=== PATIENT | male | born 1995 ===

== ENCOUNTER 2017-05-14 14:01 | Emergency (ER) | payer OTHER ==
[~2017-05-14] VITALS: Ht 165.1 cm; Wt 84.6 kg
[~2017-05-14 14:01] MED LIST: ACET-1311 PO; TERB250T47 PO
[2017-05-14 14:06] VITALS: Ht 165.1 cm; Wt 84.6 kg
[2017-05-14] MEDS ORDERED: MAGNESIUM SULFATE 1GM / D5W 1 GM BAG IV STA (14:14)
[2017-05-14] MEDS ORDERED: PROCHLORPERAZINE 5 MG/ML 2 ML VIAL IV STA (14:14)
[2017-05-14] MEDS ORDERED: DiphenhydrAMINE HCL 50 MG/ML VIAL IV STA (14:14)
[2017-05-14] MEDS ORDERED: KETOROLAC TROMETHAMINE 30 MG/ML VIAL IV STA (14:14)
--- NOTE | 2017-05-14 14:17 | EMERGENCY ROOM VISIT NOTE ---
History Report prepared by Evans: Arnav Rea Under the Supervision of: Dr. Vipin Pate M.D. First contact with patient: 14:09 Chief Complaint: HEADACHE Stated Complaint: HEADACHE,EYE BURNING SENSATION History of Present Illness The patient is a 21 year old male who presents to the Emergency Room with complaints of intermittent headaches for two days [employer]. He states the headache is coming and going. He notes that his eyes have been burning. He has taken an Advil that provided mild relief. He notes mild neck pain. He states the headache is tense. He denies any fevers. He denies any underlying medical problems. 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 Review of Systems See HPI for pertinent positives & negatives. A total of 10 systems reviewed and were otherwise negative. Past Medical & Surgical Medical Problems: (1) Congenital ankyloglossia Family History Cancer Diabetes mellitus Heart disease Hypertension Social History Smoking Status: Never Smoker Smokeless Tobacco Use: No Alcohol Use: none Drug Use: none Marital Status: single Housing Status: lives with family Occupation Status: student Current/Historical Medications Scheduled PRN Acetaminophen (Tylenol), 650 MG PO Q6H PRN for Pain Ibuprofen Tab (Advil), 200 MG PO UD PRN for Headache Allergies Coded Allergies: No Known Allergies (Unverified , 05/14/17) Physical Exam Vital Signs Date Time Temp Pulse Resp B/P (MAP) Pulse Ox O2 Delivery O2 Flow Rate FiO2 05/14/17 16:36 37.0 60 18 108/57 99 05/14/17 15:52 49 18 110/53 98 Room Air 05/14/17 15:12 99 Room Air 05/14/17 14:06 37.0 73 20 130/63 99 Room Air Physical Exam GENERAL: Patient is a healthy-appearing well-nourished male. No evidence of meningitis or encephalitis on exam. HEAD: Normocephalic atraumatic. EYES: Ocular movements intact pupils equal and react to light OROPHARYNX mucous membranes are moist no exudates present no erythema or edema present NECK: Supple no nuchal rigidity CHEST: Good equal expansion LUNGS: Clear and equal to auscultation CARDIAC: Normal S1 and S2 ABDOMEN: Soft nontender no guarding BACK: No CVA tenderness EXTREMITIES: No pain upon palpation normal muscle strength in all groups no clubbing cyanosis or edema NEURO: Patient is following commands and answering questions appropriately. Alert and oriented x3 Cranial Nerves 2-12 grossly intact Medical Decision & Procedures ER Provider Diagnostic Interpretation: Radiology results as stated below per my review and radiologist interpretation: HEAD WITHOUT CONTRAST (CT) CT DOSE: 537.48 mGy.cm HISTORY: Headache Pt c/o AMS TECHNIQUE: Multiaxial CT images of the head were performed without the use of intravenous contrast. A dose lowering technique was utilized adhering to the principles of ALARA. Comparison: None. Findings: The paranasal sinuses and mastoid air cells are clear. The calvarium and skull base are intact. The ventricles and sulci are within normal limits. There is no mass, hematoma, midline shift, or acute infarct. Impression: No acute intracranial abnormality. The above report was generated using voice recognition software. It may contain grammatical, syntax or spelling errors. Electronically signed by: Isauro Estrada M.D. 05/14/2017 3:15 PM Dictated Date/Time: 05/14/2017 3:14 PM Laboratory Results 05/14/17 14:35 Red Blood Count 5.44, Mean Corpuscular Volume 78.5, Mean Corpuscular Hemoglobin 27.6, Mean Corpuscular Hemoglobin Concent 35.1, Mean Platelet Volume 10.7, Neutrophils (%) (Auto) 35.7, Lymphocytes (%) (Auto) 50.6, Monocytes (%) (Auto) 9.4, Eosinophils (%) (Auto) 2.9, Basophils (%) (Auto) 1.0, Neutrophils # (Auto) 1.74, Lymphocytes # (Auto) 2.47, Monocytes # (Auto) 0.46, Eosinophils # (Auto) 0.14, Basophils # (Auto) 0.05 05/14/17 14:35 Test 05/14/17 14:35 05/14/17 15:00 White Blood Count 4.88 K/uL (4.8-10.8) Red Blood Count 5.44 M/uL (4.7-6.1) Hemoglobin 15.0 g/dL (14.0-18.0) Hematocrit 42.7 % (42-52) Mean Corpuscular Volume 78.5 fL (80-100) Mean Corpuscular Hemoglobin 27.6 pg (25-34) Mean Corpuscular Hemoglobin Concent 35.1 g/dl (32-36) Platelet Count 193 K/uL (130-400) Mean Platelet Volume 10.7 fL (7.4-10.4) Neutrophils (%) (Auto) 35.7 % Lymphocytes (%) (Auto) 50.6 % Monocytes (%) (Auto) 9.4 % Eosinophils (%) (Auto) 2.9 % Basophils (%) (Auto) 1.0 % Neutrophils # (Auto) 1.74 K/uL (1.4-6.5) Lymphocytes # (Auto) 2.47 K/uL (1.2-3.4) Monocytes # (Auto) 0.46 K/uL (0.11-0.59) Eosinophils # (Auto) 0.14 K/uL (0-0.5) Basophils # (Auto) 0.05 K/uL (0-0.2) RDW Standard Deviation 35.6 fL (36.4-46.3) RDW Coefficient of Variation 12.6 % (11.5-14.5) Immature Granulocyte % (Auto) 0.4 % Immature Granulocyte # (Auto) 0.02 K/uL (0.00-0.02) Neutrophils % (Manual) 29.2 % Lymphocytes % (Manual) 35.4 % Variant Lymphocytes % (manual) 22.1 % Monocytes % (Manual) 12.4 % Eosinophils % (Manual) 0.9 % Neutrophils # (Manual) 1.42 K/uL (1.4-6.5) Total Absolute Neutrophils 1.42 K/uL (1.4-6.5) Lymphocytes # (Manual) 1.73 K/uL (1.2-3.4) Absolute Variant Lymphocytes 1.08 K/uL Total Absolute Lymphocytes 2.81 K/uL (1.2-3.4) Monocytes # (Manual) 0.61 K/uL (0.11-0.59) Eosinophils # (Manual) 0.04 K/uL (0-0.5) Microcytosis PRESENT Anion Gap 4.0 mmol/L (3-11) Est Creatinine Clear Calc Drug Dose 122.6 ml/min Estimated GFR () 130.6 Estimated GFR (Non- 112.7 BUN/Creatinine Ratio 19.1 (10-20) Calcium Level 8.6 mg/dl (8.5-10.1) Total Bilirubin 1.2 mg/dl (0.2-1) Direct Bilirubin 0.3 mg/dl (0-0.2) Aspartate Amino Transf (AST/SGOT) 19 U/L (15-37) Alanine Aminotransferase (ALT/SGPT) 43 U/L (12-78) Alkaline Phosphatase 70 U/L (45-117) Total Protein 7.4 gm/dl (6.4-8.2) Albumin 4.1 gm/dl (3.4-5.0) Monoscreen NEG (NEG) Influenza Type A Antigen Neg for Influ A (NEG) Influenza Type B Antigen Neg for Influ B (NEG) Labs reviewed by ED physician. Medications Administered Medications (Trade) Dose Ordered Sig/Christopher Route Start Time Stop Time Status Last Admin Dose Admin Ketorolac Tromethamine (Toradol Inj) 30 mg NOW STAT IV 05/14/17 14:14 05/14/17 14:16 DC 05/14/17 15:11 30 MG Prochlorperazine Edisylate (Compazine Inj) 10 mg NOW STAT IV 05/14/17 14:14 05/14/17 14:16 DC 05/14/17 14:14 10 MG Diphenhydramine HCl (Benadryl Inj) 50 mg NOW STAT IV 05/14/17 14:14 05/14/17 14:16 DC 05/14/17 14:14 50 MG Magnesium Sulfate (Magnesium Sulfate) 1 gm NOW STAT IV 05/14/17 14:14 05/14/17 14:17 DC 05/14/17 14:14 1 GM Dexamethasone Sodium Phosphate (Decadron Inj) 10 mg NOW IV 05/14/17 16:00 05/14/17 17:11 DC 05/14/17 16:11 10 MG ED Course 1410: Past medical records reviewed. The patient was evaluated in room B2. A complete history and physical examination was performed. 1414: Ordered Magnesium Sulfate 1 gm IV, Benadryl 50 mg IV, Compazine 10 mg IV, and Toradol 30 mg IV 1518: I reassessed the patient at this time. He is feeling better and resting comfortably. I discussed the results and treatment plan with the patient. I answered all pertaining questions that he had. He expressed understanding and verbalized agreement. The patient will be discharged home. Medical Decision Prior records/ancillary studies reviewed. Triage Nursing notes reviewed. The patient's history was concerning for headache. Differential diagnosis: Etiologies such as migraine headache, meningitis, sinusitis, CO exposure, ICH, SAH, infection, tumor, headache, sinus thrombosis, arterial dissection, as well as others were entertained. This is a 21-year-old male who presents emergency department complaining of headache. The patient has no evidence of meningitis encephalitis on examination. He does not have an elevation in his white blood count and is afebrile here therefore my suspicion of meningitis is exceedingly low. CT the head does not show any acute abnormalities. An IV was established, the patient given Toradol, Compazine, Benadryl. Repeat examination revealed improvement patient's symptoms. She feels patient as well as to be discharged home. Patient was in agreement with the treatment plan. Medication Reconcilliation Current Medication List: was personally reviewed by me Blood Pressure Screening Patient's blood pressure: Elevated blood pressure Blood pressure disposition: Referred to PCP Impression Primary Impression: Headache Scribe Attestation The scribe's documentation has been prepared under my direction and personally reviewed by me in its entirety. I confirm that the note above accurately reflects all work, treatment, procedures, and medical decision making performed by me. Departure Information Dispostion Home / Self-Care Referrals No Doctor, Assigned (PCP) Forms HOME CARE DOCUMENTATION FORM, IMPORTANT VISIT INFORMATION, School Instructions, Work Instructions Patient Instructions ED Headache Migraine, My [facility] Additional Instructions Return if you develop fevers, severe headache and neck pain You have been examined and treated today on an emergency basis only. This is not a substitute for, or an effort to provide, complete comprehensive medical care. It is impossible to recognize and treat all injuries or illnesses in a single emergency department visit. It is therefore important that you follow up closely with your PCP. Call as soon as possible for an appointment. Thank you for your time and consideration. I look forward to speaking with you again soon. Please don't hesitate to call us if you have any questions. Problem Qualifiers Primary Impression: Headache Headache type: unspecified Headache chronicity pattern: unspecified pattern Intractability: not intractable Qualified Codes: R51 - Headache
[2017-05-14] MEDS ORDERED: IBUP-103 PO (14:39)
[2017-05-14 14:49] LABS: HEMATOCRIT 42.7 % (42-52); MEAN CELL VOLUME 78.5 fL (80-100); MEAN CORPUSCULAR HEMOGLOBIN 27.6 pg (25-34); MEAN CORPUSCULAR HGB CONC 35.1 g/dl (32-36); MEAN PLATELET VOLUME 10.7 fL (7.4-10.4); PLATELET COUNT 193 K/uL (130-400); RED CELL DISTRIBUTION WIDTH CV 12.6 % (11.5-14.5); RED CELL DISTRIBUTION WIDTH SD 35.6 fL (36.4-46.3); WHITE BLOOD COUNT 4.88 K/uL (4.8-10.8)
[2017-05-14 15:12] VITALS: O2SAT 99
[2017-05-14 15:14] LABS: ALBUMIN 4.1 gm/dl (3.4-5.0); CALCIUM 8.6 mg/dl (8.5-10.1); CREATININE 0.97 mg/dl (0.60-1.40); POTASSIUM 3.7 mmol/L (3.5-5.1); TOTAL PROTEIN 7.4 gm/dl (6.4-8.2)
--- NOTE | 2017-05-14 15:16 | DIAGNOSTIC IMAGING REPORT ---
HEAD WITHOUT CONTRAST (CT) CT DOSE: 537.48 mGy.cm HISTORY: Headache Pt c/o AMS TECHNIQUE: Multiaxial CT images of the head were performed without the use of intravenous contrast. A dose lowering technique was utilized adhering to the principles of ALARA. Comparison: None. Findings: The paranasal sinuses and mastoid air cells are clear. The calvarium and skull base are intact. The ventricles and sulci are within normal limits. There is no mass, hematoma, midline shift, or acute infarct. Impression: No acute intracranial abnormality. The above report was generated using voice recognition software. It may contain grammatical, syntax or spelling errors. Electronically signed by: Isauro Estrada M.D. 05/14/2017 3:15 PM Dictated Date/Time: 05/14/2017 3:14 PM
[2017-05-14] MEDS ORDERED: DEXAMETHASONE INJ 10 MG in SYRINGE 0 ML IV STA (15:19)
[2017-05-14 15:24] LABS: BASO ABS # 0.05 K/uL (0-0.2); EOS % 2.9 %; EOS ABS # 0.14 K/uL (0-0.5); IG# 0.02 K/uL (0.00-0.02); LYMPH % 50.6 %; LYMPH ABS # 2.47 K/uL (1.2-3.4); MONO % 9.4 %; MONO ABS # 0.46 K/uL (0.11-0.59); NEUT % 35.7 %; NEUT ABS # 1.74 K/uL (1.4-6.5)
[2017-05-14] MEDS ORDERED: DEXAMETHASONE SOD INJ 10 MG/ML VIAL IV SCH (16:00)
[2017-05-14 16:08] LABS: INFLUENZA B ANTIGEN Neg for Influ B (NEG)
[2017-05-14] MEDS ORDERED: DEXAMETHASONE **PF** INJ 10 MG/ML VIAL ONE (16:10)
[2017-05-14 16:36] VITALS: BP 108/57; PULSE 60; TEMP 37; O2SAT 99
[2017-05-17 10:26] LABS: EBV EARLY ANTIGEN AB < 9.00 U/ML
== END 2017-05-14 16:37 | disposition home or self-care (01) ==
LOC: C.EDB 14:03
DX: R51 Headache (principal); Q38.1 Ankyloglossia; Z83.3 Family history of diabetes mellitus; Z82.49 Family history of ischemic heart disease and other diseases of the circulatory system